=== PATIENT | female | born 1990 | race Caucasian/White ===

== ENCOUNTER 2016-06-28 11:49 | Emergency (ER) | payer OTHER ==
[~2016-06-28] VITALS: Ht 154.9 cm; Wt 64.0 kg
[2016-06-28] MEDS ORDERED: NORE1CAP PO (11:57)
[2016-06-28 12:03] VITALS: BP 142/82; PULSE 74; RESP 18; TEMP 98.2; O2SAT 100
--- NOTE | 2016-06-28 12:11 | PD ---
HPI Chief Complaint: Syncope/Near-Syncope Time Seen by Provider: 12:11 Travel History International Travel<30 days: No Contact w/Intl Traveler<30days: No Traveled to known affect area: No History of Present Illness HPI 26-year-old female came to the emergency room with her boyfriend after having a syncopal episode. Patient says that she has been vomiting for past 2 days. Last vomit was just 1 hour ago prior to coming in. She was standing and brushing her teeth when she started getting lightheaded, noticed bright spots in front of her eyes and then passed out. When she fell on the floor she hit her head. Currently she has a small bump on her for head. She says she feels just tired. Boyfriend says that she has had syncopal episodes multiple times in the past which required workup. Eventually she was told that she has a tendency to get hypoglycemic due to which she passes out. And she carries food all the time with her and if she starts getting lightheaded she eats. However this time with vomiting she was unable to do that. Vital signs are stable in the ER. Her blood sugar was 86 when she arrived. [facility] Past Medical History Narrative Medical List of her past medical, surgical, social and family history reviewed from the nursing note. Medical History: Denies Significant Hx Diminished Hearing: No Influenza Vaccination: No ?: Not LMP: 05/2016 Past Surgical History Surgical History: No Previous Surgery Gynecologic Surgery: Yes (TUBAL ) Social History Alcohol Use: Yes (OCC) Tobacco Use: No Allergies-Medications (Allergen,Severity, Reaction): Coded Allergies: No Known Allergies (Unverified , 06/28/16) Comments No known allergies Reported Meds & Prescriptions Reported Meds & Active Scripts Active Zofran Odt (Ondansetron Odt) 4 Mg Tab 4 Mg SL Q6HR PRN Reported Taytulla (Norethindrone-Ethinyl Estradiol-Fe) 1-20 mg-Mcg Cap 1 Tab PO DAILY Narrative Medication List of her home medications reviewed from the nursing note. Review of Systems Except as stated in HPI: all other systems reviewed are Neg Physical Exam Narrative GENERAL: Awake, alert, no obvious distress SKIN: Focused skin assessment warm/dry. HEAD: 2 x 2 centimeter central forehead hematoma. Normocephalic. EYES: Pupils equal and round. No scleral icterus. No injection or drainage. ENT: No nasal bleeding or discharge. Mucous membranes pink and moist. NECK: Trachea midline. No JVD. CARDIOVASCULAR: Regular rate and rhythm. No murmur appreciated. RESPIRATORY: No accessory muscle use. Clear to auscultation. Breath sounds equal bilaterally. GASTROINTESTINAL: Abdomen soft, non-tender, nondistended. Hepatic and splenic margins not palpable. MUSCULOSKELETAL: No obvious deformities. No clubbing. No cyanosis. No edema. NEUROLOGICAL: Awake and alert. No obvious cranial nerve deficits. Motor grossly within normal limits. Normal speech. PSYCHIATRIC: Appropriate mood and affect; insight and judgment normal. Data Data Last Documented VS Vital Signs Date Time Temp Pulse Resp B/P Pulse Ox O2 Delivery O2 Flow Rate FiO2 06/28/16 13:50 121/76 99 06/28/16 12:25 75 18 Room Air 06/28/16 12:03 98.2 Orders Basic Metabolic Panel (Bmp) (06/28/16 12:17) Complete Blood Count With Diff (06/28/16 12:17) Iv Access Insert/Monitor (06/28/16 12:17) Ecg Monitoring (06/28/16 12:17) Oximetry (06/28/16 12:17) Sodium Chlor 0.9% 1000 Ml Inj (Ns 1000 M (06/28/16 12:17) Sodium Chloride 0.9% Flush (Ns Flush) (06/28/16 12:30) Electrocardiogram (06/28/16 12:17) Ed Urine Pregnancytest Poc (06/28/16 12:17) Ondansetron Inj (Zofran Inj) (06/28/16 12:30) Labs Laboratory Tests Test 06/28/16 12:00 White Blood Count 6.2 TH/MM3 Red Blood Count 5.10 MIL/MM3 Hemoglobin 14.2 GM/DL Hematocrit 42.4 % Mean Corpuscular Volume 83.2 FL Mean Corpuscular Hemoglobin 27.8 PG Mean Corpuscular Hemoglobin 33.4 % Concent Red Cell Distribution Width 13.7 % Platelet Count 264 TH/MM3 Mean Platelet Volume 7.7 FL Neutrophils (%) (Auto) 61.8 % Lymphocytes (%) (Auto) 28.2 % Monocytes (%) (Auto) 6.3 % Eosinophils (%) (Auto) 3.0 % Basophils (%) (Auto) 0.7 % Neutrophils # (Auto) 3.8 TH/MM3 Lymphocytes # (Auto) 1.8 TH/MM3 Monocytes # (Auto) 0.4 TH/MM3 Eosinophils # (Auto) 0.2 TH/MM3 Basophils # (Auto) 0.0 TH/MM3 CBC Comment DIFF FINAL Differential Comment Sodium Level 141 MEQ/L Potassium Level 4.0 MEQ/L Chloride Level 104 MEQ/L Carbon Dioxide Level 28.1 MEQ/L Anion Gap 9 MEQ/L Blood Urea Nitrogen 8 MG/DL Creatinine 0.82 MG/DL Estimat Glomerular Filtration 84 ML/MIN Rate Random Glucose 90 MG/DL Calcium Level 9.4 MG/DL [facility] Medical Decision Making Medical Screen Exam Complete: Yes Emergency Medical Condition: Yes Medical Record Reviewed: Yes Differential Diagnosis Twelve-lead EKG was reviewed by me. Normal sinus rhythm, normal axis, nonspecific ST-T wave changes. Heart rate of 90 bpm. Narrative Course 1:39 PM blood test results of back and within normal limits. Patient has received a liter of IV fluid bolus. At this point I'll discharge her home. She probably had an orthostatic hypotension. She needs to follow up with her primary care. Procedures EKG Prior to Arrival: No Diagnosis Primary Impression: Syncope Qualified Code: R55 - Syncope, unspecified syncope type Additional Impressions: Orthostatic hypotension Head injury Qualified Code: S09.90XA - Head injury, initial encounter Contusion Qualified Code: S00.93XA - Contusion of head, unspecified part of head, initial encounter Vomiting Qualified Code: R11.11 - Non-intractable vomiting without nausea, unspecified vomiting type Referrals: Primary Care Physician 2 days Additional Instructions: Please return to the ER if the condition worsens or any other new concerns. Otherwise follow-up with primary care in couple days. Drink fluids to keep himself hydrated. Take the nausea medication as per the prescription direction. Med/Other Pt SpecificInfo: Prescription(s) given Scripts Ondansetron Odt (Zofran Odt)4 Mg Tab4 Mg SL Q6HR PRN (Nausea/Vomiting) #15 TAB Ref 0 Prov:Fareed Faustin MD 06/28/16 Disposition: 01 DISCHARGE HOME Condition: Stable Fareed Faustin MD June 28, 2016 12:11
[2016-06-28] MEDS ORDERED: SODIUM CHLOR 0.9% 1000 ML INJ 1,000 ML IV SCH (12:17)
[2016-06-28 12:25] VITALS: BP 121/76; PULSE 75; RESP 18; O2SAT 100
[2016-06-28] MEDS ORDERED: SODIUM CHLORIDE 0.9% FLUSH 10 ML FLUSH IV FLUSH PRN (12:30)
[2016-06-28] MEDS ORDERED: ONDANSETRON HCL 4 MG/2 ML VIAL IV PUSH ONE (12:30)
[2016-06-28 12:56] LABS: AUTOMATED NEUTROPHIL # 3.8 TH/MM3 (1.8-7.7); BASOPHIL % 0.7 % (0.0-2.0); EOSINOPHIL # 0.2 TH/MM3 (0-0.4); HEMATOCRIT 42.4 % (35.0-46.0); HEMO FLAGS DIFF FINAL; LYMPH % 28.2 % (9.0-44.0); LYMPHOCYTE # 1.8 TH/MM3 (1.0-4.8); MEAN CELL VOLUME 83.2 FL (80.0-100.0); MEAN CORPUSCULAR HEMOGLOBIN 27.8 PG (27.0-34.0); MEAN CORPUSCULAR HGB CONC 33.4 % (32.0-36.0); MONO % 6.3 % (0.0-8.0); NEUT % 61.8 % (16.0-70.0); PLATELET COUNT 264 TH/MM3 (150-450); RED CELL DISTRIBUTION WIDTH 13.7 % (11.6-17.2); WHITE BLOOD COUNT 6.2 TH/MM3 (4.0-11.0)
[2016-06-28 13:10] LABS: BICARBONATE 28.1 MEQ/L (21.0-32.0)
[2016-06-28] MEDS ORDERED: ZOFR4TAB3 SL (13:41)
[2016-06-28 13:50] VITALS: BP 121/76
--- NOTE | 2016-06-29 09:46 | EKG ---
Date Performed: 06/28/2016 Time Performed: 12:23:28 PTAGE: 26 years EKG: Sinus rhythm Normal ECG NO PREVIOUS TRACING DOCTOR: Zia Elliott Interpretating Date/Time 06/29/2016 09:44:21
== END 2016-06-28 14:02 | disposition home or self-care (01) ==
LOC: PHED 11:49
DX: R55 Syncope and collapse (principal); S00.93XA Contusion of unspecified part of head, initial encounter; R11.11 Vomiting without nausea; W22.09XA Striking against other stationary object, initial encounter; W18.39XA Other fall on same level, initial encounter; Y93.89 Activity, other specified; Y92.012 Bathroom of single-family (private) house as the place of occurrence of the external cause; Y99.9 Unspecified external cause status
CPT/HCPCS: 80048; 84703; 85025; 93005; 96361; 96374; 99284; J2405; J7030

== ENCOUNTER 2016-08-04 20:21 | Emergency (ER) | payer OTHER ==
[~2016-08-04] VITALS: Ht 172.7 cm; Wt 63.1 kg
[~2016-08-04 20:21] MED LIST: NORE1CAP PO; ZOFR4TAB3 SL
[2016-08-04 20:25] VITALS: BP 143/90; PULSE 109; RESP 20; TEMP 97.5; O2SAT 100
[2016-08-04] MEDS ORDERED: SODIUM CHLOR 0.9% 1000 ML INJ 1,000 ML IV SCH (21:24)
[2016-08-04] MEDS ORDERED: MORPHINE SULFATE 4 MG/ML INJ IV PUSH ONE (21:30)
[2016-08-04] MEDS ORDERED: ONDANSETRON HCL 4 MG/2 ML VIAL IVP ONE (21:30)
[2016-08-04] MEDS ORDERED: SODIUM CHLORIDE 0.9% FLUSH 10 ML FLUSH IV FLUSH PRN (21:30)
[2016-08-04 21:40] VITALS: RESP 18; O2SAT 98
[2016-08-04 21:53] LABS: AUTOMATED NEUTROPHIL # 6.4 TH/MM3 (1.8-7.7); BASOPHIL # 0.1 TH/MM3 (0-0.2); BASOPHIL % 0.7 % (0.0-2.0); EOSINOPHIL # 0.2 TH/MM3 (0-0.4); EOSINOPHIL % 2.3 % (0.0-4.0); HEMATOCRIT 41.7 % (35.0-46.0); HEMO FLAGS DIFF FINAL; LYMPH % 26.9 % (9.0-44.0); LYMPHOCYTE # 2.7 TH/MM3 (1.0-4.8); MEAN CELL VOLUME 83.3 FL (80.0-100.0); MEAN CORPUSCULAR HEMOGLOBIN 27.9 PG (27.0-34.0); MEAN CORPUSCULAR HGB CONC 33.5 % (32.0-36.0); NEUT % 63.1 % (16.0-70.0); PLATELET COUNT 259 TH/MM3 (150-450); RED BLOOD COUNT 5.01 MIL/MM3 (4.00-5.30); RED CELL DISTRIBUTION WIDTH 13.5 % (11.6-17.2); WHITE BLOOD COUNT 10.1 TH/MM3 (4.0-11.0)
[2016-08-04 21:56] VITALS: BP 127/72; PULSE 92; RESP 18; O2SAT 100
[2016-08-04 22:00] LABS: POTASSIUM 3.4 MEQ/L (3.5-5.1)
[2016-08-04 22:01] LABS: BLOOD, URINE SMALL (NEG); GLUCOSE,URINE NEG (NEG); KETONE, URINE NEG (NEG); NITRITE,URINE NEG (NEG)
[2016-08-04 22:04] LABS: APTT (PATIENT) 26.5 SEC (24.3-30.1); INTERNATIONAL NORMALIZED RATIO 0.9 RATIO; PROTHROMBIN TIME - PATIENT 10.4 SEC (9.8-11.6)
[2016-08-04 22:10] LABS: URINE COLOR YELLOW (YELLW/STRAW)
[2016-08-04 22:11] LABS: COMMENT (UR) CULT NOT INDICATED; CULTURE IF INDICATED CULT NOT INDICATED; RBC, URINE 0-3 /hpf (0-3); SQUAMOUS EPITHELIAL CELL URINE 0-5 /hpf (0-5); WBC, URINE 0-2 /hpf (0-5)
[2016-08-04] MEDS ORDERED: IOHEXOL 350 MG/ML 10 ML VIAL (for RAD DIAG) IV ONE (22:41)
--- NOTE | 2016-08-04 22:43 | RADHPO ---
EXAM DATE/TIME: 08/04/2016 22:14 [place] COMPARISON: No previous studies available for comparison. INDICATIONS : Constipation almost for five days IV CONTRAST: 68 cc Omnipaque 350 (iohexol) IV ORAL CONTRAST: No oral contrast ingested. RADIATION DOSE: 6.58 CTDIvol (mGy) MEDICAL HISTORY : None SURGICAL HISTORY : None. ENCOUNTER: Initial ACUITY: 4 - 6 days PAIN SCALE: 8/10 LOCATION: abdomen TECHNIQUE: Volumetric scanning of the abdomen and pelvis was performed. Using automated exposure control and ad justment of the mA and/or kV according to patient size, radiation dose was kept as low as reasonably achievable to obtain optimal diagnostic quality images. FINDINGS: LOWER LUNGS: The visualized lower lungs are clear. LIVER: Homogeneous density without lesion. There is no dilation of the biliary tree. No calcified gallston es. SPLEEN: Upper limits of normal size without evidence of focal mass. PANCREAS: Within normal limits. KIDNEYS: Normal in size and shape. There is no mass, stone or hydronephrosis. ADRENAL GLANDS: Within normal limits. VASCULAR: There is no aortic aneurysm. BOWEL/MESENTERY: The stomach, small bowel, and colon demonstrate no acute abnormality. There is no free intraperitone al air or fluid. ABDOMINAL WALL: Within normal limits. RETROPERITONEUM: There is no lymphadenopathy. BLADDER: No wall thickening or mass. REPRODUCTIVE: Within normal limits. INGUINAL: There is no lymphadenopathy or hernia. MUSCULOSKELETAL: Within normal limits for patient age. CONCLUSION: No acute CT findings in the abdomen or pelvis. Kan Ramos MD on August 04, 2016 at 22:39 Board Certified Radiologist. This report was verified electronically.
[2016-08-04] MEDS ORDERED: PEG (High)/E-LYTE SOLN 4000 ML BTL PO ONE (23:00)
--- NOTE | 2016-08-04 23:25 | PD ---
HPI Chief Complaint: GI Complaint Time Seen by Provider: 21:18 Travel History International Travel<30 days: No Contact w/Intl Traveler<30days: No Traveled to known affect area: No History of Present Illness HPI Patient is a 26 year old female who comes in complaining of abdominal pain and bloating. She says she has not had a bowel movement for 5 days, which she states is not abnormal for her. She says tonight, she started to notice her abdomen getting bigger and she felt severe pain. She has had some nausea, but no vomiting. She denies fever or chills. She has had issues with constipation for a while and has been seeing "a natural doctor" who has told her to take different "enzymes." She denies any dysuria or vaginal discharge. [facility], [facility] Past Medical History Diminished Hearing: No Tetanus Vaccination: Unknown Influenza Vaccination: No ?: Unknown LMP: 3 weeks ago Past Surgical History Gynecologic Surgery: Yes (TUBAL ) Social History Alcohol Use: Yes (OCC) Tobacco Use: No Substance Use: No Allergies-Medications (Allergen,Severity, Reaction): Coded Allergies: No Known Allergies (Unverified , 08/04/16) Reported Meds & Prescriptions Reported Meds & Active Scripts Active Reported Taytulla (Norethindrone-Ethinyl Estradiol-Fe) 1-20 mg-Mcg Cap 1 Tab PO DAILY Review of Systems Except as stated in HPI: all other systems reviewed are Neg General / Constitutional: No: Fever, Chills HENT: No: Headaches, Lightheadedness Cardiovascular: No: Chest Pain or Discomfort Respiratory: No: Shortness of Breath Gastrointestinal: Positive: Nausea, Abdominal Pain, Constipation, No: Vomiting Genitourinary: No: Dysuria Skin: No Rash, No Change in Pigmentation Neurologic: No: Weakness, Dizziness Physical Exam Narrative GENERAL: Awake and alert, in no acute distress. SKIN: Focused skin assessment warm/dry. HEAD: Atraumatic. Normocephalic. EYES: Pupils equal and round. No scleral icterus. ENT: No nasal bleeding or discharge. Mucous membranes pink and moist. NECK: Trachea midline. No JVD. CARDIOVASCULAR: Regular rate and rhythm. No murmur appreciated. RESPIRATORY: No accessory muscle use. Clear to auscultation. Breath sounds equal bilaterally. GASTROINTESTINAL: Abdomen mildly distended, diffusely tender to palpation. No rebound or guarding. No CVA tenderness. MUSCULOSKELETAL: No obvious deformities. No clubbing. No cyanosis. No edema. NEUROLOGICAL: Awake and alert. No obvious cranial nerve deficits. Motor grossly within normal limits. Normal speech. PSYCHIATRIC: Appropriate mood and affect; insight and judgment normal. Data Data Last Documented VS Vital Signs Date Time Temp Pulse Resp B/P Pulse Ox O2 Delivery O2 Flow Rate FiO2 08/04/16 21:56 92 18 127/72 100 Room Air 08/04/16 20:25 97.5 Orders Basic Metabolic Panel (Bmp) (08/04/16 21:24) Complete Blood Count With Diff (08/04/16 21:24) Lipase (08/04/16 21:24) Lactic Acid (08/04/16 21:24) Prothrombin Time / Inr (Pt) (08/04/16 21:24) Act Partial Throm Time (Ptt) (08/04/16 21:24) Urinalysis - C+S If Indicated (08/04/16 21:24) Ua Includes Microscopic (08/04/16 21:24) Ct Abd/Pel W Iv Contrast(Rout) (08/04/16 21:24) Iv Access Insert/Monitor (08/04/16 21:24) Ecg Monitoring (08/04/16 21:24) Oximetry (08/04/16 21:24) Morphine Inj (Morphine Inj) (08/04/16 21:30) Ondansetron Inj (Zofran Inj) (08/04/16 21:30) Sodium Chlor 0.9% 1000 Ml Inj (Ns 1000 M (08/04/16 21:24) Sodium Chloride 0.9% Flush (Ns Flush) (08/04/16 21:30) Ed Urine Pregnancytest Poc (08/04/16 21:24) Iohexol 350 Inj (Omnipaque 350 Inj) (08/04/16 22:41) Peg (High)/E-Lyte Liq (Colyte Liq) (08/04/16 23:00) Labs Laboratory Tests Test 08/04/16 08/04/16 20:30 21:40 Urine Color YELLOW Urine Turbidity CLEAR Urine pH 7.0 Urine Specific Ava 1.005 Urine Protein NEG mg/dL Urine Glucose (UA) NEG mg/dL Urine Ketones NEG mg/dL Urine Occult Blood SMALL Urine Nitrite NEG Urine Bilirubin NEG Urine Leukocyte Esterase NEG Urine RBC 0-3 /hpf Urine WBC 0-2 /hpf Urine Squamous Epithelial 0-5 /hpf Cells Microscopic Urinalysis Comment CULT NOT INDICATED White Blood Count 10.1 TH/MM3 Red Blood Count 5.01 MIL/MM3 Hemoglobin 13.9 GM/DL Hematocrit 41.7 % Mean Corpuscular Volume 83.3 FL Mean Corpuscular Hemoglobin 27.9 PG Mean Corpuscular Hemoglobin 33.5 % Concent Red Cell Distribution Width 13.5 % Platelet Count 259 TH/MM3 Mean Platelet Volume 7.8 FL Neutrophils (%) (Auto) 63.1 % Lymphocytes (%) (Auto) 26.9 % Monocytes (%) (Auto) 7.0 % Eosinophils (%) (Auto) 2.3 % Basophils (%) (Auto) 0.7 % Neutrophils # (Auto) 6.4 TH/MM3 Lymphocytes # (Auto) 2.7 TH/MM3 Monocytes # (Auto) 0.7 TH/MM3 Eosinophils # (Auto) 0.2 TH/MM3 Basophils # (Auto) 0.1 TH/MM3 CBC Comment DIFF FINAL Differential Comment Prothrombin Time 10.4 SEC Prothromb Time International 0.9 RATIO Ratio Activated Partial 26.5 SEC Thromboplast Time Sodium Level 141 MEQ/L Potassium Level 3.4 MEQ/L Chloride Level 104 MEQ/L Carbon Dioxide Level 28.0 MEQ/L Anion Gap 9 MEQ/L Blood Urea Nitrogen 10 MG/DL Creatinine 0.75 MG/DL Estimat Glomerular Filtration 93 ML/MIN Rate Random Glucose 94 MG/DL Lactic Acid Level 0.8 mmol/L Calcium Level 9.2 MG/DL Lipase 188 U/L [facility] Medical Decision Making Medical Screen Exam Complete: Yes Emergency Medical Condition: Yes Medical Record Reviewed: Yes Differential Diagnosis Obstruction versus constipation versus colitis versus appendicitis Narrative Course Patient is a 26-year-old female comes in complaining of abdominal pain and bloating. Exam shows distention and diffuse tenderness. IV established, labs sent. Labs including lactic acid are within normal limits. Patient given IV fluids. She refused pain medicine. CT abdomen and pelvis performed shows no acute abnormalities. There is a large amount of stool in the colon. Last 24 hours Impressions Abdomen/Pelvis CT 08/04/16 [id number] Signed Impressions: Service Date/Time: July 22:14 - CONCLUSION: No acute CT findings in the abdomen or pelvis. Kan Ramos MD I explained to the patient that she does have a lot of stool in her colon and this is likely causing her symptoms. I offered her laxatives, she would like to take them here to ensure that she goes. She is given GoLYTELY. Observed in the ED to have a bowel movement. Discharged home to follow up with GI. Advised to return to the ED as needed for any worsening symptoms. Diagnosis Primary Impression: Constipation Qualified Code: K59.00 - Constipation, unspecified constipation type Patient Instructions: Constipation (ED), General Instructions Additional Instructions: Follow up with gastroenterology. Increase your fiber and water intake. Take Miralax daily. Return to the ED as needed for any worsening symptoms. Disposition: 01 DISCHARGE HOME Condition: Stable Claudine Segura MD Aug 04, 2016 23:25
[2016-08-05 00:05] VITALS: BP 122/70; PULSE 88; RESP 18; O2SAT 99
[2016-08-05 02:15] VITALS: BP 128/74; PULSE 84; RESP 18; O2SAT 99
== END 2016-08-05 02:59 | disposition home or self-care (01) ==
LOC: PHED 20:21
DX: K59.00 Constipation, unspecified (principal)
CPT/HCPCS: 74177; 80048; 81001; 83605; 83690; 84703; 85025; 85610; 85730; 96360; 99285; J7030; Q9967